=== PATIENT | female | born 1955 | race Caucasian/White ===

== ENCOUNTER → 2017-12-13 | Outpatient (CLI) | payer BC ==
[~2017-12-13] MED LIST: BISHYD2.5 PO; LEVFLO500 PO; OXYACE5T PO; PHENA200 PO; POTCHL10ER PO; [UNRECOGNIZED DRUG - REMARK] PO
== END ==
LOC: LAB EV 14:39 → LAB SHORT 14:39
DX: M54.5 Low back pain (principal)
CPT/HCPCS: 87077; 87086; 87186

== ENCOUNTER → 2019-01-13 | Outpatient (CLI) | payer OTHER | END | disposition home or self-care (01) | LOC: LAB SHORT 16:19 → LAB 16:19 | DX: L98.9 Disorder of the skin and subcutaneous tissue, unspecified (principal) | CPT/HCPCS: 87070; 87077; 87186; 87205 ==

== ENCOUNTER → 2020-05-10 | Outpatient (CLI) | payer MEDICARE | END | disposition home or self-care (01) | LOC: LAB SHORT 08:42 → LAB 08:42 | DX: D22.5 Melanocytic nevi of trunk (principal) | CPT/HCPCS: 88305 ==

== ENCOUNTER → 2020-05-25 | Outpatient (CLI) | payer MEDICARE | END | disposition home or self-care (01) | LOC: LAB SHORT 15:22 → LAB 15:22 | DX: N39.0 Urinary tract infection, site not specified (principal) | CPT/HCPCS: 87086; 87147 ==

== ENCOUNTER → 2021-11-26 | Outpatient (CLI) | payer MEDICARE ==
[2021-11-26 08:35] LABS: BASOPHILS ABSOLUTE AUTO 0.07 K/mm3 (0.00-0.23); BASOPHILS PERCENT AUTO 1 % (0-2); EOSINOPHILS ABSOLUTE AUTO 0.06 K/mm3 (0.00-0.68); EOSINOPHILS PERCENT AUTO 1 % (0-6); Hematocrit 47.1 % (33.0-51.0); Hemoglobin 16.5 g/dL (11.5-16.0); IMMATURE GRAN ABSOLUTE AUTO 0.03 K/mm3 (0.00-0.10); IMMATURE GRAN PERCENT AUTO 0 % (0-1); LYMPHOCYTES ABSOLUTE AUTO 1.46 K/mm3 (0.84-5.20); LYMPHOCYTES PERCENT AUTO 14 % (21-46); MONOCYTES ABSOLUTE AUTO 0.89 K/mm3 (0.16-1.47); MONOCYTES PERCENT AUTO 8 % (4-13); Mean Corpuscular HGB 31.4 pg (26.0-34.0); Mean Corpuscular Volume 90 fL (80-100); Mean Platelet Volume 9.5 fL (9.1-12.4); NEUTROPHILS PERCENT AUTO 77 % (41-73); Platelet Count 353 K/mm3 (150-400); RDW Coefficient Variation 12.7 % (11.7-14.2); RDW Standard Deviation 41.4 fL (35.1-46.3); Red Blood Cell Count 5.25 M/mm3 (3.80-5.20); White Blood Cell Count 10.81 K/mm3 (4.00-11.30)
[2021-11-26 08:46] LABS: Alanine Aminotransfer (ALT/SGP 9 U/L (12-78); Albumin, Blood 3.9 g/dL (3.4-5.0); Alk Phos 73 U/L (40-126); Anion Gap 12 mmol/L (6-16); Aspartate Aminotrans (AST/SGOT 16 U/L (12-37); Bilirubin, Total 0.8 mg/dL (0.1-1.0); Blood Urea Nitrogen 16 mg/dL (8-24); Bun/Creatinine Ratio 17.8 (12.0-20.0); CO2, Blood 27 mmol/L (21-32); Calcium, Blood 9.6 mg/dL (8.5-10.1); Chloride, Blood 101 mmol/L (98-108); Globulin, Blood 3.9 g/dL (2.2-4.0); Glomerular Filtration Rate >60 (60-); Glucose, Blood 118 mg/dL (70-99); Potassium, Blood 3.9 mmol/L (3.5-5.5); Sodium, Blood 140 mmol/L (136-145); Total Protein, Blood 7.8 g/dL (6.4-8.2)
== END | disposition home or self-care (01) ==
LOC: LAB 08:31 → LAB SHORT 08:31
PROVIDERS: Physician Assistant
DX: R10.9 Unspecified abdominal pain (principal)
CPT/HCPCS: 80053; 83690; 85025

== ENCOUNTER → 2022-05-17 | Outpatient (CLI) | payer MEDICARE ==
[2022-05-17 08:59] LABS: BASOPHILS ABSOLUTE AUTO 0.07 K/mm3 (0.00-0.23); BASOPHILS PERCENT AUTO 1 % (0-2); EOSINOPHILS PERCENT AUTO 6 % (0-6); Hematocrit 47.3 % (33.0-51.0); Hemoglobin 16.5 g/dL (11.5-16.0); IMMATURE GRAN ABSOLUTE AUTO 0.03 K/mm3 (0.00-0.10); IMMATURE GRAN PERCENT AUTO 0 % (0-1); LYMPHOCYTES ABSOLUTE AUTO 1.23 K/mm3 (0.84-5.20); LYMPHOCYTES PERCENT AUTO 14 % (21-46); MONOCYTES ABSOLUTE AUTO 0.62 K/mm3 (0.16-1.47); MONOCYTES PERCENT AUTO 7 % (4-13); Mean Corpuscular HGB 31.5 pg (26.0-34.0); Mean Corpuscular HGB Conc 34.9 g/dL (31.5-36.5); Mean Corpuscular Volume 90 fL (80-100); Mean Platelet Volume 9.3 fL (9.1-12.4); NEUTROPHILS ABSOLUTE AUTO 6.38 K/mm3 (1.96-9.15); NEUTROPHILS PERCENT AUTO 72 % (41-73); Platelet Count 328 K/mm3 (150-400); RDW Coefficient Variation 12.8 % (11.7-14.2); Red Blood Cell Count 5.24 M/mm3 (3.80-5.20); White Blood Cell Count 8.83 K/mm3 (4.00-11.30)
[2022-05-17 09:41] LABS: Albumin, Blood 4.2 g/dL (3.4-5.0); Albumin/Globulin Ratio 1.1 (0.8-1.8); Bilirubin, Total 0.6 mg/dL (0.1-1.0); Bun/Creatinine Ratio 26.2 (12.0-20.0); Calcium, Blood 10.1 mg/dL (8.5-10.1); Creatinine, Blood 0.69 mg/dL (0.40-1.00); Globulin, Blood 3.7 g/dL (2.2-4.0); Potassium, Blood 4.3 mmol/L (3.5-5.5); Total Protein, Blood 7.9 g/dL (6.4-8.2)
== END | disposition home or self-care (01) ==
LOC: LAB SHORT 08:46 → LAB 08:46
PROVIDERS: General Practice
DX: I10 Essential (primary) hypertension (principal)
CPT/HCPCS: 80053; 84484; 85025

== ENCOUNTER 2022-10-16 06:16 | Day surgery (SDC) | payer MEDICARE ==
[~2022-10-16] VITALS: Ht 149.9 cm; Wt 72.6 kg
[~2022-10-16 06:16] MED LIST changes: +ACET325 PO; +AIRBORNE ELDER1 EACH PO; +Acerola C500 MG PO; +Bisoprolol Fumar5 MG PO; +FISH OIL PO; +GABA300 PO; +MERIBIN5 MG PO; +NAPR500EC PO; +SERT25; +TRAM50 PO; +Zoloft25 MG PO
--- NOTE | 2022-10-16 08:31 | NUR ---
10/16/22 0831 Alejandrina Barcenas PATIENT RECEIVED VANCO 1GM IN THE PREOP SETTING PRIOR TO ARRIVING IN THE OR.
--- NOTE | 2022-10-16 11:00 | NUR ---
PATIENT ARRIVED TO ROOM VIA BED. X3 INCISIONS TO LEFT HIP W/ GAUZE & TAPE DRESSINGS, C/D/I. POLAR PACK IN PLACE. PATIENT REPORTS FULL SENSATION TO BLE, ABLE TO WIGGLE TOES. VSS ON RA, LUNGS CLEAR. ORIENTED TO ROOM & CALL LIGHT, IN REACH.
--- NOTE | 2022-10-16 18:56 | NUR ---
SHIFT SUMMARY POD 0 L ANUP, DRESSINGS REMAIN C/D/I. PAIN MANAGED WELL PER EMAR. PATIENT WORKED WITH PT & OT, DID VERY WELL. PATIENT VOIDED ABOUT 250, PVR OF 70. PATIENT TOLERATING PO DIET, DID HAVE SOME NAUSEA AND EMESIS X1. MEDICATED PER EMAR. CALLS APPROPRIATELY, IN REACH. REPORT GIVEN TO JAROCHO BOWERS.
--- NOTE | 2022-10-17 04:33 | NUR ---
POD1 LEFT ANUP. SENSATION AND CIRCULATION REMAIN INTACT IN LLE. DRESSINGS ARE C/D/I. VSS. PT SLEPT WELL T/O THE NIGHT. MEDICATED FOR PAIN WTIH SCHEDULED AND PRN'S. PT WAS ABLE TO AMBULATE MULTIPLE TIMES T/O THE NIGHT TO THE BATHROOM TO VOID W/O DIFFICULTY. TOLLERATING MINIMAL PO INTAKE, PT EXPERIENCED SOME POST OP NAUSEA. PLAN FOR PT TO HAVE PT/OT TODAY AND D/C HOME. THE PATIENT IS CURRENTLY SLEEPING, IN NO DISTRESS, CALL LIGHT IN REACH
[2022-10-17 05:02] LABS: BASOPHILS ABSOLUTE AUTO 0.01 K/mm3 (0.00-0.23); BASOPHILS PERCENT AUTO 0 % (0-2); EOSINOPHILS PERCENT AUTO 0 % (0-6); Hematocrit 34.7 % (33.0-51.0); IMMATURE GRAN ABSOLUTE AUTO 0.07 K/mm3 (0.00-0.10); IMMATURE GRAN PERCENT AUTO 1 % (0-1); LYMPHOCYTES ABSOLUTE AUTO 0.83 K/mm3 (0.84-5.20); LYMPHOCYTES PERCENT AUTO 7 % (21-46); MONOCYTES ABSOLUTE AUTO 1.05 K/mm3 (0.16-1.47); MONOCYTES PERCENT AUTO 8 % (4-13); Mean Corpuscular HGB 31.2 pg (26.0-34.0); Mean Corpuscular HGB Conc 34.6 g/dL (31.5-36.5); Mean Corpuscular Volume 90 fL (80-100); Mean Platelet Volume 9.6 fL (9.1-12.4); NEUTROPHILS ABSOLUTE AUTO 10.76 K/mm3 (1.96-9.15); NEUTROPHILS PERCENT AUTO 85 % (41-73); Platelet Count 278 K/mm3 (150-400); RDW Coefficient Variation 12.6 % (11.7-14.2); RDW Standard Deviation 41.8 fL (35.1-46.3); Red Blood Cell Count 3.85 M/mm3 (3.80-5.20); White Blood Cell Count 12.72 K/mm3 (4.00-11.30)
[2022-10-17 06:41] LABS: Bun/Creatinine Ratio 21.2 (12.0-20.0); Creatinine, Blood 0.75 mg/dL (0.40-1.00); Magnesium, Blood 1.9 mg/dL (1.6-2.4); Potassium, Blood 4.4 mmol/L (3.5-5.5)
[2022-10-17] MEDS ORDERED: OXYC5 PO (07:13)
[2022-10-17] MEDS ORDERED: ASPI81CH PO (07:14)
[2022-10-17] MEDS ORDERED: LINE600 PO (07:16)
[2022-10-17] MEDS ORDERED: PROM25 PO (07:18)
--- NOTE | 2022-10-17 10:30 | NUR ---
DISCHARGE PT HAS CLEARED THERAPY. PAIN WELL CONTROLLED PER EMAR. AQUACEL OVER EACH INCISION, C/D/I. EATING, DRINKING, & VOIDING WELL. DISCUSSED DISCHARGE INSTRUCTIONS WITH PATIENT. DRESSINGS, DISCHARGE INSTRUCTIONS, & POLAR PACK SENT WITH PATIENT. ESCORTED OUT VIA W/C.
== END 2022-10-17 10:38 | disposition home or self-care (01) ==
LOC: ORSCMMR 06:16 → ORD 10:45 → ORSCMMR 10:45 → SURS 10:54 → ORSCMMR 10-17 10:38
PROVIDERS: Orthopaedic Surgery
PROC: 0SRB0JA Replacement of Left Hip Joint with Synthetic Substitute, Uncemented, Open Approach (ICD-10-PCS; principal; 2022-10-16 07:30)
DX: M16.12 Unilateral primary osteoarthritis, left hip (principal); I10 Essential (primary) hypertension; K21.9 Gastro-esophageal reflux disease without esophagitis; Z79.899 Other long term (current) drug therapy
CPT/HCPCS: 36415; 72170; 80048; 83735; 85025; 97116; 97161; 97165; 97530; 97535; A9270; C1713; C1776; J0171; J0690; J0735; J1100; J1885; J2250; J2370; J2405; J2704; J2765; J2795; J3010; J3370; J7120

== ENCOUNTER 2023-09-10 08:14 | Day surgery (SDC) | payer MEDICARE ==
[2023-09-10] VITALS (15 sets, daily range): BP systolic 105–132; BP diastolic 53–100
[~2023-09-10] VITALS: Ht 149.9 cm; Wt 69.9 kg
[~2023-09-10 08:14] MED LIST changes: +AIRBORNE PO; +ASPI81CH PO; +CIDAFLEX TABLE1 EAC1 PO; +FentaNYL Citrate 50 MCG/ML 2 ML Injection ONE; +LINE600 PO; +MULVITA PO; +OXYC5 PO; +PROM25 PO; +VITAMIN D310 MC4 PO; +propofoL 20 ML IV ONE
[2023-09-10] MEDS ORDERED: Acetaminophen 500 MG Tab PO SCH ×2 (08:35→16:00)
[2023-09-10] MEDS ORDERED: OxyCODONE HCL 10 MG TABCR PO SCH (08:35)
[2023-09-10] MEDS ORDERED: Chlorhexidine Mouth Care 15 ML UDC MT SCH (08:35)
[2023-09-10] MEDS ORDERED: Vancomycin HCL 1,000 MG in NS 100 ML IV SCH ×2 (08:35→21:00)
[2023-09-10] MEDS ORDERED: Lactated Ringer's 1,000 ML IV SCH ×2 (08:35→09:35)
[2023-09-10] MEDS ORDERED: Ropivacaine 0.5% HCl/Pf 67.75 MG,EPINEPHrine HCL 0.25 MG,Ketorolac Tromethamine 15 MG,C... INFIL SCH (08:35)
[2023-09-10] MEDS ORDERED: Bupivacaine 0.5% HCl 5 MG/ML 30MLVIAL ONE (08:37)
[2023-09-10] MEDS ORDERED: GABA100 PO (08:42)
[2023-09-10] MEDS ORDERED: Lidocaine HCl 1% 5 ML SYR INJ ONE (08:50)
[2023-09-10] MEDS ORDERED: Midazolam HCl 1MG / ML 2ML Vial IV ONE (08:50)
[2023-09-10] MEDS ORDERED: HYDROmorphone HCl/Pf 1MG SYR IV PRN ×2 (08:55→09:10)
[2023-09-10] MEDS ORDERED: FentaNYL Citrate 50 MCG/ML 2 ML Injection IV PRN ×2 (08:55→09:15)
[2023-09-10] MEDS ORDERED: CeFAZolin Sodium 2,000 MG in NS 50 ML IV SCH ×2 (08:55→17:45)
[2023-09-10] MEDS ORDERED: Ondansetron HCl 2 MG / ML 2ML Vial IV PRN ×2 (08:55→09:10)
[2023-09-10] MEDS ORDERED: Vancomycin HCl 1000 MG ADDvantage ONE (09:00)
[2023-09-10] MEDS ORDERED: Magnesium Hydroxide Conc 10 ML UDC PO PRN (09:10)
[2023-09-10] MEDS ORDERED: DiphenhydrAMINE HCL 25 MG Cap PO PRN (09:15)
[2023-09-10] MEDS ORDERED: FLU VACC QS2023-24(6MOS UP)/PF 60 MCG/0.5 ML SYRINGE IM SCH (09:15)
[2023-09-10] MEDS ORDERED: Promethazine HCl 25 MG Tab PO PRN (09:20)
[2023-09-10] MEDS ORDERED: Bisacodyl 10 MG Supp PR PRN (09:20)
[2023-09-10] MEDS ORDERED: OxyCODONE HCL 5 MG TAB PO PRN ×2 (09:20)
--- NOTE | 2023-09-10 09:33 | NUR ---
History, Chart, Medications and Allergies reviewed before start of procedure. Lungs clear T/O to Auscultation. Patient confirms NPO status and agrees with scheduled surgery. Pre-Op teaching done. Pt verbalizes understanding. Patient reports completing Chlorhexadine shower X2 prior to admission to hospital.
[2023-09-10] MEDS ORDERED: Phenylephrine HCl 100 MCG/ML-NS 10MLSYR (1MG/10ML) ONE (09:48)
[2023-09-10] MEDS ORDERED: Ondansetron HCl 2 MG / ML 2ML Vial ONE (09:49)
[2023-09-10] MEDS ORDERED: propofoL 20 ML IV ONE ×4 (09:53→11:38)
[2023-09-10] MEDS ORDERED: ePHEDrine Sulfate 50 MG/ML 1ML Injection ONE (09:58)
--- NOTE | 2023-09-10 10:29 | NUR ---
09/10/23 1029 Lali Bishop SPINAL NERVE BLOCK COMPLETED BY DR. CHARLES UPON ENTRY TO OR. PT TOLERATED WELL.
[2023-09-10] MEDS ORDERED: Ketorolac Tromethamine 15mg Vial IV SCH (12:00)
--- NOTE | 2023-09-10 13:48 | NUR ---
ARRIVAL TO SURGICAL UNIT PLEASANT & ALERT. SPINAL WORKING FOR PAIN BUT IS ABLE TO WIGGLE TOES & NOT LIFT LEGS YET. ASSESSMENT CHARTED. DENIES N/V; LIQUIDS & SNACKS GIVEN. AT SIDE.
--- NOTE | 2023-09-10 16:42 | NUR ---
THIS NURSE IS ASSUMING CARE.
[2023-09-10] MEDS ORDERED: Metoprolol Succinate 50 MG TABCR PO SCH (21:00)
[2023-09-10] MEDS ORDERED: Docusate Sodium 100 MG Cap PO SCH (21:00)
[2023-09-10] MEDS ORDERED: Gabapentin 300 MG Cap PO SCH (21:00)
[2023-09-11 04:17] VITALS: BP 112/64
--- NOTE | 2023-09-11 04:39 | NUR ---
SHIFT SUMMARY POD 1 L TKA PT ABLE TO REST T/O NIGHT. PT UP TO THE BATHROOM, VOIDING. TRANSFERRING WITH 1 PERSON SBA, WITH WALKER AND GAIT BELT. TOLERATING PO INTAKE. PAIN MANAGED PER EMAR. DENIES ANY N/T TO LOWER EXT'S. NO OTHER CONCERNS AT THIS TIME. CALL LIGHT WITHIN REACH
[2023-09-11 04:52] LABS: BASOPHILS ABSOLUTE AUTO 0.05 K/mm3 (0.00-0.23); BASOPHILS PERCENT AUTO 1 % (0-2); EOSINOPHILS ABSOLUTE AUTO 0.18 K/mm3 (0.00-0.68); EOSINOPHILS PERCENT AUTO 2 % (0-6); Hematocrit 38.1 % (33.0-51.0); Hemoglobin 12.9 g/dL (11.5-16.0); IMMATURE GRAN ABSOLUTE AUTO 0.03 K/mm3 (0.00-0.10); IMMATURE GRAN PERCENT AUTO 0 % (0-1); LYMPHOCYTES ABSOLUTE AUTO 0.94 K/mm3 (0.84-5.20); LYMPHOCYTES PERCENT AUTO 12 % (21-46); MONOCYTES ABSOLUTE AUTO 0.79 K/mm3 (0.16-1.47); MONOCYTES PERCENT AUTO 10 % (4-13); Mean Corpuscular HGB 30.7 pg (26.0-34.0); Mean Corpuscular HGB Conc 33.9 g/dL (31.5-36.5); Mean Corpuscular Volume 91 fL (80-100); NEUTROPHILS ABSOLUTE AUTO 5.93 K/mm3 (1.96-9.15); NEUTROPHILS PERCENT AUTO 75 % (41-73); Platelet Count 226 K/mm3 (150-400); RDW Coefficient Variation 12.6 % (11.7-14.2); RDW Standard Deviation 41.5 fL (35.1-46.3); White Blood Cell Count 7.92 K/mm3 (4.00-11.30)
[2023-09-11 05:10] LABS: Magnesium, Blood 1.8 mg/dL (1.6-2.4)
[2023-09-11 05:11] LABS: Bun/Creatinine Ratio 13.6 (12.0-20.0); Calcium, Blood 8.8 mg/dL (8.5-10.1); Creatinine, Blood 0.74 mg/dL (0.40-1.00); Potassium, Blood 4.3 mmol/L (3.5-5.5)
[2023-09-11 07:21] VITALS: BP 103/83
[2023-09-11] MEDS ORDERED: Gabapentin 100 MG Cap PO SCH (09:00)
[2023-09-11] MEDS ORDERED: Multivitamins 1 Tab PO SCH (09:00)
[2023-09-11] MEDS ORDERED: Cholecalciferol 400 unit Tab PO SCH (09:00)
[2023-09-11] MEDS ORDERED: Glucosamine Sulfate 500 MG Cap PO SCH (09:00)
[2023-09-11] MEDS ORDERED: Linezolid 600 MG Tab PO SCH (09:00)
[2023-09-11] MEDS ORDERED: Ascorbic Acid 250 MG Chew PO SCH (09:00)
[2023-09-11] MEDS ORDERED: DOCU100 PO (09:37)
[2023-09-11] MEDS ORDERED: XARELTO20 MG PO (09:41)
--- NOTE | 2023-09-11 10:45 | NUR ---
DISCHARGE SUMMARY PT A&OX4, VSS/RA, ANSHU PO, VOIDING, AMB FWW/UP TO CHAIR, PAIN MANAGED, IV DC'D. DC INS PROVIDED. PT REP UNDERSTANDING THOSE INSTRUCTIONS INCLUDING FU APPT WITH SURGEON, DRESSING CHANGES, PREVENTING CONSTIPATION, [place] X30/XARELTO X 30D, SHORT FREQ AMB WITH FWW AT ALL TIMES, PAIN MANAGEMENT, WHEN TO CALL THE DR. LEFT FLOOR VIA WC WITH AUTOMOTIVE SERVICE WRITER TO GO HOME WITH WITH ALL PERSONAL POSSESSIONS INCLUDING POLAR KRYSTIAN, EXTRA AQUACEL DRESSINGS AND DC INS.
[2023-09-11] MEDS ORDERED: Rivaroxaban 10 MG Tab PO SCH (19:00)
== END 2023-09-11 10:45 | disposition home or self-care (01) ==
LOC: ORSCMMR 08:14 → ORD 10:00 → ORSCMMR 10:45 → ORD 10:45 → SURS 13:34 → ORSCMMR 09-11 10:45
PROVIDERS: Orthopaedic Surgery
PROC: 0SRD0J9 Replacement of Left Knee Joint with Synthetic Substitute, Cemented, Open Approach (ICD-10-PCS; principal; 2023-09-10 10:45)
DX: M17.0 Bilateral primary osteoarthritis of knee (principal); Z96.642 Presence of left artificial hip joint; I10 Essential (primary) hypertension; Z85.3 Personal history of malignant neoplasm of breast; Z79.899 Other long term (current) drug therapy; Z85.828 Personal history of other malignant neoplasm of skin
CPT/HCPCS: 36415; 73560-LT; 80048; 83735; 85025; 97110; 97116; 97162; A9270; C1713; C1776; J0171; J0690; J0735; J1885; J2250; J2371; J2405; J2704; J2795; J3010; J3370; J7120

== ENCOUNTER 2024-08-12 07:06 | Day surgery (SDC) | payer MEDICARE ==
[~2024-08-12] VITALS: Ht 152.4 cm; Wt 70.8 kg
[2024-08-12] VITALS (10 sets, daily range): BP systolic 109–152; BP diastolic 65–92
[~2024-08-12 07:06] MED LIST changes: +DOCU100 PO; -FentaNYL Citrate 50 MCG/ML 2 ML Injection ONE; +GABA100 PO; +VITAMIN B122500 MC1 PO; +XARELTO20 MG PO; +[UNRECOGNIZED DRUG - OTHER]; -propofoL 20 ML IV ONE
[2024-08-12] MEDS ORDERED: Clindamycin 600mg in D5W 50 ML IV SCH (08:35)
[2024-08-12] MEDS ORDERED: Lactated Ringer's 1,000 ML IV SCH (08:35)
[2024-08-12] MEDS ORDERED: propofoL 20 ML IV ONE (09:41)
[2024-08-12] MEDS ORDERED: FentaNYL Citrate 50 MCG/ML 2 ML Injection ONE (09:41)
[2024-08-12] MEDS ORDERED: Bupivacaine 0.5% HCl 5 MG/ML 30MLVIAL ONE (10:04)
[2024-08-12] MEDS ORDERED: Methylene Blue 1% 100 MG/10 ML VIAL ONE (10:05)
--- NOTE | 2024-08-12 10:05 | NUR ---
Ambulatory in Day Surgery History, Chart, Medications and Allergies reviewed before start of procedure. Pre-Op teaching done. Pt verbalizes understanding. Patient States Post-Procedure ride home has been arranged.
[2024-08-12] MEDS ORDERED: Ondansetron HCl 2 MG / ML 2ML Vial ONE (10:19)
[2024-08-12] MEDS ORDERED: Dexamethasone Sod Phos 10 MG/ML 1ML VIAL ONE (10:19)
[2024-08-12] MEDS ORDERED: HYDROmorphone HCl/Pf 1MG SYR ONE (11:06)
[2024-08-12] MEDS ORDERED: Ketorolac Tromethamine 30mg Vial ONE (12:28)
[2024-08-12] MEDS ORDERED: HYDROcodone 5-APAP 325 TAB PO PRN (13:20)
--- NOTE | 2024-08-12 13:33 | NUR ---
REPORT RECEIVED FROM ELSA BOWERS. VSS. PT ON RA. PT A&OX4. PT ABLE TO REPOSITION SELF IN BED. PT REQUESTING PO FOOD AND FLUIDS AND TOLERATING THEM WELL. PT DENIES PAIN, NAUSEA OR OTHER DISCOMFORTS. PT HAS GAUZE/STERI STRIPS TO RIGHT ARM AND STERI STRIP TO R AXILLARY THAT ARE C/D/I. PT HAS BRISK CAP REFILL AND CAN MOVE ARM FREELY.
--- NOTE | 2024-08-12 14:00 | NUR ---
Patient up to Ambulate independently. Gait steady. VSS AND CONSISTENT WITH PT BASELINE. PT HAS NO COMPLAINTS AND VERBALIZES READINESS TO GO HOME. Discharge instructions reviewed with patient AND HER SPOUSE. Patient AND verbalize understanding. Copy given to patient to take home. Dressing to procedure site clean, dry, intact with no visible drainage, swelling, erythema or bruising noted. Patient States Post-Procedure ride home has been arranged. Discharged via wheelchair to private car for ride home. PT BELONGINGS RETURNED TO PT.
== END 2024-08-12 13:55 | disposition home or self-care (01) ==
LOC: NM 07:06 → ORSCMMR 07:06 → NM 08:00
PROVIDERS: Surgery
PROC: 07B50ZX Excision of Right Axillary Lymphatic, Open Approach, Diagnostic (ICD-10-PCS; principal; 2024-08-12 10:30)
DX: C43.61 Malignant melanoma of right upper limb, including shoulder (principal); D36.0 Benign neoplasm of lymph nodes; D22.61 Melanocytic nevi of right upper limb, including shoulder; I10 Essential (primary) hypertension; E78.5 Hyperlipidemia, unspecified; Z79.899 Other long term (current) drug therapy
CPT/HCPCS: 78195; 88305; 88307; 88341; 88342; A9520; J1100; J1171; J1885; J2405; J2704; J3010; J7120; Q9968